=== PATIENT | female | born 1945 | race Caucasian/White ===

== ENCOUNTER 2018-08-08 09:03 | Outpatient (CLI) | payer MEDICARE, BC, SELFPAY ==
[2018-08-08 09:29] LABS: HCT 43.6 % (36.0-46.0); HGB 14.5 g/dL (12.0-15.5)
== END 2018-08-08 09:23 ==
PROVIDERS: PCP Physician Assistant Medical; Visit Provider Obstetrics & Gynecology
DX: N81.89 Other female genital prolapse (principal); Z01.818 Encounter for other preprocedural examination
CPT/HCPCS: 36415; 86850; 86900; 86901; 85014; 85018

== ENCOUNTER 2018-08-14 07:11 | Inpatient (IN) | payer MEDICARE, BC, SELFPAY ==
[2018-08-14] VITALS (10 sets, daily range): BP systolic 106–179; BP diastolic 43–79; PULSE 57–69; RESP 13–18; TEMP 36.1–36.6; O2SAT 95–99
[2018-08-14] MEDS: Lactated Ringers 1,000 ML 125 ML IV ×2 (08:03→12:09)
--- NOTE | 2018-08-14 09:56 | UTER_PTH ---
PATIENT: Erica Silveira LOC: OBS U#:[id number] AGE/SX: 73/F ROOM: OBS.301 RE08/14/[address]: Jess Villegas MD : 1945 BED: A DIS: 08/15/2018 SPEC #: [id number] RECD: 08/14/18 17:56 STATUS: CORINNE REQ #: [id number] JOSÉ MIGUEL: 08/14/18 09:[address]: Jess Villegas DEPT: Surgical Specimen RECD BY: Maite Vaughn ENTERED: 08/14/18 17:57 SP TYPE: UTER OTHR DR: Namrata Thomas Tissues: 1 - UTERUS W OR W/O OVARIES(NOT TUMOR/PROLAPSE) Procedures: GROSS AND MICRO LEVEL 5 Comments: [id number]
--- NOTE | 2018-08-14 13:46 | NUR.NOTE ---
admitted to room 301 via stretcher from PACU. Alert oriented. IV of LR at 125 hour infusing via R periph line. SCD'sin place bilat. Linda to BSD patent.Report recived from Roxie NOE.Nursing Note:
--- NOTE | 2018-08-14 17:25 | W.PM.PROGNOT ---
Date of Service Date of service: 08/14/18 Time of Service: 17:26 Assessment and Plan (1) History of vaginal hysterectomy: Current visit: Yes Status: Acute Satisfactory postop day 0 recovery. Plan Mckeon catheter removal in the morning possible discharge home. Will provide Toradol for pain relief this evening. Subjective Patient reports: tolerating a regular diet Interval history since last seen: Postop day 0 as/P vaginal hysterectomy with posterior colporrhaphy unilateral inguinal ligament suspension and bladder cystoscopy. Reports no pain no nausea. Feels that she is doing well after the surgery. Is looking forward to going home tomorrow. Exam Const General: comfortable and no acute distress Orientation: alert, awake and oriented x3 Resp Effort & Inspection: normal respiratory effort Auscultation: clear to auscultation bilaterally Cardio Palpation: normal PMI Rate: regular rate Rhythm: regular rhythm Heart Sounds: S1 normal and S2 normal GI Inspection: normal to inspection Palpation: soft Other: Nontender no guarding rebound or masses General: deferred (Vaginal pack in place it will be removed tomorrow morning) Other: Clear justin urine in the Mckeon catheter. Skin General skin exam: no rashes or lesions noted Lesions: no lesions Rashes: no rashes Trauma: no lacerations or abrasions Extrem General: normal to inspection, full ROM and normal capillary refill (Sequential compression devices in place and functioning) Objective Objective Clinical Data: Vital Signs Temperature 97.5 F L 08/14/18 13:42 Temperature Source Oral 08/14/18 13:42 Pulse 57 L 08/14/18 13:42 Pulse Rhythm Regular 08/14/18 07:45 Respiratory Rate 14 08/14/18 13:42 Respiratory Effort 08/14/18 07:45 Respiratory Depth Normal 08/14/18 07:45 Respiratory Pattern Normal 08/14/18 07:45 Blood Pressure 106/50 L 08/14/18 13:42 Pulse Oximetry 95 08/14/18 13:42 Respiratory End-tidal CO2 28 08/14/18 13:05 Oxygen Delivery Method Room Air 08/14/18 13:42 Oxygen Flow Rate 0 08/14/18 13:42 Pain Level 0 08/14/18 13:05 Intake & Output 08/13/18 08/14/18 08/14/18 23:59 11:59 23:59 Intake Total 1160 / 1160 Balance 1160 / 1160 Weight 170 lb 10.205 oz Intake: IV 1100 / 1100 Oral 60 / 60 Other: Urine Color Yellow Urine Appearance Clear Emesis Description None
[2018-08-15 01:50] VITALS: BP 138/56; PULSE 59; RESP 20; TEMP 36.6; O2SAT 95
[2018-08-15 02:16] VITALS: O2SAT 95
[2018-08-15] MEDS: Lactated Ringers 1,000 ML 125 ML IV (02:47)
[2018-08-15 08:12] VITALS: BP 154/61; PULSE 67; RESP 16; O2SAT 98
--- NOTE | 2018-08-15 08:37 | W.PM.DS.N ---
Date of service: 08/15/18 Time of Service: 08:37 DS: Diagnosis Discharge Diagnosis (1) History of vaginal hysterectomy: Status: Acute (2) Pelvic organ prolapse quantification stage 4 cystocele: Status: Acute Discharge Plan Disposition Patient Disposition: HOME Condition: Good Discharge Details Admit Date/Time: 08/14/18 07:11 Admit Provider: eJss Villegas Attending Provider: Jess Villegas Primary Care Provider: Namrata Thomas Hospital Course Hospital Course: Admitted the morning of surgery underwent the above-stated procedure minimal blood loss satisfactory repair of rectocele negative bladder cystoscopy. She required no pain medications during her hospital course was able to void spontaneously the morning of surgery and tolerate a regular diet. Home Meds and New Rx's Prescriptions: No Action metoprolol tartrate 25 mg tablet 25 mg PO BID RF: 0 Discharge Instructions Stand Alone Forms: DSU Post Gynecology Surgery Activity:: Activity as Tolerated Equipment/Supplies:: No Equipment Needed Diet:: As Tolerated Discharge Orders Discharge Orders: Discharge Order (Routine); Ordered 08/15/18 Ordered By: Flores Fontana DS: Summary Time spent discussing smoking cessation with patient: 3 to 10 minutes Exam Const General: cooperative and no acute distress Resp Effort & Inspection: normal respiratory effort Auscultation: clear to auscultation bilaterally Cardio Palpation: normal PMI Rate: regular rate Rhythm: regular rhythm Heart Sounds: S1 normal and S2 normal General: deferred and other (Vaginal packing fell out during the night-small amount of serosanguineous d) Skin General skin exam: no rashes or lesions noted Extrem General: normal to inspection, full ROM and normal capillary refill Psych Appearance: grossly normal Mental Status: mental status grossly normal Speech and Movement: speech and movement normal Mood: congruent mood Affect: normal affect Attitude: cooperative Thought Process: normal Thought Content: normal DS: Data Vitals/I&O Vitals and I&O: Vital Signs Temperature 97.9 F 08/15/18 01:50 Temperature Source Oral 08/15/18 08:12 Pulse 67 08/15/18 08:12 Pulse Rhythm Regular 08/15/18 08:12 Respiratory Rate 16 08/15/18 08:12 Respiratory Effort Non-Labored 08/15/18 08:12 Respiratory Depth Normal 08/15/18 08:12 Respiratory Pattern Normal 08/15/18 08:12 Blood Pressure 154/61 H 08/15/18 08:12 Pulse Oximetry 98 08/15/18 08:12 Respiratory End-tidal CO2 28 08/14/18 13:05 Oxygen Delivery Method Room Air 08/15/18 08:12 Oxygen Flow Rate 0 08/15/18 08:12 Pain Level 0 08/15/18 01:50 Intake & Output 08/14/18 08/14/18 08/15/18 11:59 23:59 11:59 Intake Total 1864 / 1864 863 / 863 Output Total 900 / 900 1550 / 1550 Balance 964 / 964 -687 / -687 Weight 170 lb 10.205 oz Intake: IV 1804 / 1804 863 / 863 Oral 60 / 60 Output: Urine 900 / 900 1550 / 1550 Other: Urine Color Yellow Davies Urine Appearance Clear Sediment Clear Urine Odor None Comment catheter removed by Lisa Hyde RN without issue. Pt understands need to void within 6 hours of removal. Stool Size Smear Stool Characteristics Soft Emesis Description None Voiding Methods Indwelling Catheter PFSH Medical History Pelvic organ prolapse quantification stage 4 cystocele (Acute) Surgical History History of vaginal hysterectomy (Acute) Hip joint replacement status (Acute) Social History household members: spouse housing: house lives independently: Yes number of children: 4 Smoking/Tobacco Use Status: Former Tobacco Use History History 4 Para 4 Hx # Term Pregnancies 4 Multiple births Hx # Pregnancies Ectopic pregnancies AB induced Hx Number of Living Children AB spontaneous
--- NOTE | 2018-08-30 14:45 | ROE_ITS ---
DATE OF PROCEDURE: August 15, 2018 PREOPERATIVE DIAGNOSIS: 4th degree uterine prolapse, 4th degree cystocele and 2nd degree rectocele r epair. PROCEDURE: Vaginal hysterectomy, anterior colporrhaphy, cystoscopy. SURGEON: Jess Villegas M.D. PRACTICE ARCHITECT: Flores Fontana M.D. ANESTHESIA: General. COMPLICATIONS: None. ESTIMATED BLOOD LOSS: Less than 300 cc's FLUIDS: Per Anesthesia records. FINDINGS: Small uterus with 4th degree prolapse, 4th degree cystocele. After surgery was completed there was good support. PROCEDURE: The patient was taken to the Operating Room where she was properly identified. She was t hen given general anesthesia without difficulty. She was placed in the dorsal lithotomy position and prepped and draped in normal sterile fashion. A formal time-out was then performed, confirming taiwo ent and procedure. A Mckeon catheter was placed. A Stone retractor was placed anteriorly and a poste rior weighted speculum was placed. The cervix was identified, grasped on the anterior and posterior lip with a single-toothed tenaculum and brought to the full descent. Using the Bovie cautery, the ce rvix was circumferentially incised. Then using the curved Daniel scissors, the cervix was dissected aw ay from the vagina. Attention was then turned posteriorly and the posterior cul-de-sac was entered without difficulty. A long-weighted speculum was then placed posteriorly. The posterior cuff was tagged with #0 Vicryl. The uterosacrals were taken bilaterally by clamping with curved Jaylen clamp, cutting, suture ligating with #0 Vicryl in a Jaylen fashion and tying. This was done bilaterally in a similar fashion. The u terosacral tags were held. Attention was then turned anteriorly and the vesicouterine reflection was found. The anterior cul-de -sac was entered without difficulty using the Metzenbaum scissors. A Maria C retractor was placed ant eriorly to protect the bladder from the operative field. The remainder of the broad ligament was josseline en down in a series of cross-clamping with curved Jaylen clamps bilaterally and cutting and suture lig ating with #0 Vicryl. This was performed to the level of the uterine ovarian ligament, which was the n cross-clamped x2, cut, specimen removed and sent to Pathology for permanent evaluation. Each IP pe dicle was pre-tied x1 and flashed, then suture ligated with #0 Vicryl. Hemostasis was confirmed and the tags were cut. Attention was then turned to the anterior colporrhaphy portion of the procedure. The distal end was clamped laterally with Kalina clamps. The midline was injected with 1% Lidocaine with epinephrine; i t was undermined with the Metzenbaum scissors to approximately 2 mm from the UV junction. The vagina was then opened in a linear fashion and the bladder was dissected away from the vaginal mucosa. The vesicopelvic fascia was then identified bilaterally and reapproximated with #2-0 Vicryl in an interr upted fashion. The vaginal epithelium was trimmed and closed with #0 Vicryl in a running fashion. Wicho Coronado's culdoplasty was then performed. The cuff was closed with #0 Vicryl in a running fashion. Lorena Brush's sutures was then cinched and tied. There was good support. A vaginal pack was placed and t he Mckeon was left in situ. The patient was transported to the PACU in stable condition. Sponge, lap , needle and instrument counts were correct x2.
== END 2018-08-15 09:40 | disposition home or self-care (01) | DRG 743 ==
LOC: PDS 10:41 → OBS 13:40
PROVIDERS: Admitting Provider Obstetrics & Gynecology; PCP Physician Assistant Medical; Visit Provider Obstetrics & Gynecology
PROC: 0UT97ZZ Resection of Uterus, Via Natural or Artificial Opening (ICD-10-PCS; CPT 58260; principal; 2018-08-14 08:30)
PROC: 0UT97ZZ Resection of Uterus, Via Natural or Artificial Opening (ICD-10-PCS; CPT 57260; 2018-08-14 08:30)
DX: N81.3 Complete uterovaginal prolapse (principal)
CPT/HCPCS: 57260; 58260; 99231; 99238; 88307; J0690; J1100; J1885; J2405; J3010

== ENCOUNTER 2021-05-02 02:01 | Outpatient (CLI) | payer MEDICARE, BC, SELFPAY ==
[2021-05-02 09:35] LABS: HCT 37.2 % (36.0-46.0); HGB 12.1 g/dL (11.2-15.7); MCH 29.9 pg (27.0-33.0); MCHC 32.5 % (32.0-36.0); MCV 91.9 fL (80-95); MPV 10.9 fL (8.0-11.0); Platelet Count 199 10^3/uL (130-400); RBC 4.05 10^6/uL (3.93-5.22); RDW 12.8 % (11.7-14.6); RDW-SD 43.4 fL; WBC 7.18 10^3/uL (4.4-10.8)
[2021-05-02 12:20] LABS: Source Nasal/Nares
[2021-05-02 21:45] LABS: COVID-19 PCR Negative (Negative)
== END 2021-05-02 02:02 | disposition home or self-care (01) ==
LOC: LBO 02:02
PROVIDERS: PCP Physician Assistant Medical; Visit Provider Obstetrics & Gynecology
DX: N81.10 Cystocele, unspecified (principal); Z20.822 Contact with and (suspected) exposure to COVID-19; Z01.818 Encounter for other preprocedural examination; Z01.812 Encounter for preprocedural laboratory examination
CPT/HCPCS: 36415; 85027; 86850; 86900; 86901; 87635

== ENCOUNTER 2021-05-10 02:03 | Outpatient (CLI) | payer MEDICARE, BC, SELFPAY ==
[2021-05-10 10:10] LABS: Source Nasal/Nares
[2021-05-10 11:49] LABS: COVID-19 PCR Negative (Negative)
== END 2021-05-10 02:04 | disposition home or self-care (01) ==
LOC: LBO 02:03
PROVIDERS: PCP Physician Assistant Medical; Visit Provider Obstetrics & Gynecology
DX: Z20.822 Contact with and (suspected) exposure to COVID-19 (principal); Z01.818 Encounter for other preprocedural examination
CPT/HCPCS: 87635

== ENCOUNTER 2021-05-11 06:29 | Day surgery (SDC) | payer MEDICARE, BC, SELFPAY ==
[2021-05-11] VITALS (9 sets, daily range): BP systolic 135–188; BP diastolic 51–104; PULSE 51–73; RESP 12–20; TEMP 36.5–37; O2SAT 93–99; BMI 28.3
--- NOTE | 2021-05-11 01:33 | W.ANESPRE ---
General Info Date of Service Date Performed: 05/11/21 Height: 5 ft 1.25 in Weight: 68.492 kg Body Mass Index (BMI): 28.3 Surgical Procedure: Operation Date: 05/11/21 07:40 Proposed Procedures Side Surgeon p anterior repair Minoo Bledsoe MD Meds Allergies and Home Medications Allergies Allergy/AdvReac Type Severity Reaction Status Date / Time No Known Allergies Allergy Verified 05/11/21 06:38 Home Medication Medication Instructions Recorded atorvastatin 10 mg tablet 10 mg PO DAILY 03/29/21 aspirin 81 mg tablet 81 mg PO DAILY 04/26/21 clopidogrel 75 mg tablet 75 mg PO DAILY 04/26/21 diltiazem HCl 120 mg 120 mg PO .qd PRN cap 04/26/21 capsule,extended release 12 hr Current Visit Medications: Current Medications Generic Name Dose Route Start Last Admin Trade Name Freq PRN Reason Stop Dose Admin Ringer's Solution 1,000 mls @ 125 mls/hr 05/11/21 06:00 IV 06/07/21 23:59 INFUSION VESNA IV Miscellaneous Supplies 1 each 05/11/21 06:00 Iv Access IV 06/07/21 23:59 DIRECTED VESNA Sodium Chloride 0 ml 05/11/21 06:00 Normal Saline Flush 10 Ml Syr IV 06/07/21 23:59 PRN PRN Sodium Chloride 0 ml 05/11/21 06:00 Normal Saline 10 Ml Vial IJ 06/07/21 23:59 DIRECTED PRN Sterile Water 0 ml 05/11/21 06:00 Water,Injection,Sterile 10 Ml Vial IJ 06/07/21 23:59 DIRECTED PRN PFSH Active Problems Active Problems: Problem Status Onset Code Globus sensation R09.89 Right thyroid nodule E04.1 Cystocele with prolapse N81.4 History of vaginal hysterectomy Z90.710 Pelvic organ prolapse quantification stage 4 cystocele N81.10 Medical History Medical History (Updated 05/11/21 @ 06:38 by Gregoria Alexandra) CVA (cerebral vascular accident) December 2018 Hx of supraventricular tachycardia Hyperlipidemia Pelvic organ prolapse quantification stage 4 cystocele Surgical History Surgical History H/O of anterior colporrhaphy 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 postop recovery without complications Tobacco Smoking/Tobacco Use Status: Former Tobacco Use Alcohol Alcohol Intake: never Substance Use Substance use: Never Substance use type: does not use Prental History History 4 Para 4 Hx # Term Pregnancies 4 Multiple births Hx # Pregnancies Ectopic pregnancies AB induced Hx Number of Living Children AB spontaneous Vital Signs and Lab Results Vital Signs Most Recent Vital Signs in EMR: Temp Pulse Resp BP Pulse Ox 36.8 C 73 20 157/104 H 99 05/11/21 06:35 05/11/21 06:35 05/11/21 06:35 05/11/21 06:35 05/11/21 06:35 Lab Results Blood Type / Crossmatch: Patient ABO/Rh AB Positive 05/02/21 09:18 05/02/21 Antibody Screen NEGATIVE 05/02/21 09:18 05/02/21 Complete Blood Count: White Blood Count 7.18 10^3/uL (4.4-10.8) 05/02/21 09:18 05/02/21 Red Blood Count 4.05 10^6/uL (3.93-5.22) 05/02/21 09:18 05/02/21 Hemoglobin 12.1 g/dL (11.2-15.7) 05/02/21 09:18 05/02/21 Hematocrit 37.2 % (36.0-46.0) 05/02/21 09:18 05/02/21 Platelet Count 199 10^3/uL (130-400) 05/02/21 09:18 05/02/21 Complete Metabolic Panel: No Data to Display Liver Function Panel: No Data to Display Coagulation Panel: No Data to Display Cardiac Panel: No Data to Display Arterial Blood Gas: No Data to Display Venous Blood Gas: No Data to Display Pancreas Panel: No Data to Display Thyroid Panel: No Data to Display Infectious Disease: Coronavirus (COVID-19)(PCR) Negative (Negative) 05/10/21 08:02 05/10/21 Coronavirus 2019 Source Nasal/Nares 05/10/21 08:02 05/10/21 Blood Cultures: No Data to Display Toxicology Panel: No Data to Display Imaging and Studies Imaging and Studies Echocardiogram Summary: LVEF 65%, RV Fxn wnl, LA severely dilated, possible ASD, no hemodynamically significant valve disease. Anesthesia Assessment and Plan Anesthesia History Personal History: No History of Anesthesia Complications Family History: No Family History of Anesthesia Complications Exercise Tolerance Exercise Tolerance: Metabolic Equivalents>4 Cardiac & Pulmonary Exam Cardiac Exam: Normal S1/S2 Heart Sounds Pulmonary Exam: Clear Bilateral Breath Sounds Airway Exam Known Difficult Airway: No Mallampati Class: 2 Mouth Opening: Normal (> 3cm) Thyromental Distance: Greater than 3 cm Neck Range of Motion: Limited ROM Neck Circumference: Normal Teeth Condition: Normal Dentition and Removable Dentures/Plates Upper ASA Classification ASA Score: ASA 3 Emergency Case?: No NPO Status NPO Status: NPO Clears >2 hours, Solids >8 hours Anesthesia Plan Resuscitation Status: Full Code Anesthesia Technique: General Anesthesia Airway Planned: LMA Monitors Used: Standard Monitors Preoperative Comments:: 75 yo female for anterior repair. Sig PMHx: HTN, ischemic stroke (clopidogrel/aspirin), former smoker.
[2021-05-11] MEDS: Lactated Ringers 1,000 ML 125 ML IV (07:05)
--- NOTE | 2021-05-11 08:55 | ROE_ITS ---
Date of service: 05/11/21 Time of Service: 08:55 Operative Note Operative Note DATE OF PROCEDURE: 05/11/21 PRE-OP DIAGNOSIS: Cystocele grade 4 POST-OP DIAGNOSIS: same PROCEDURE: Vaginal anterior repair SURGEON: Minoo Bledsoe ASSISTING SURGEON: Flores Fontana ANESTHESIA TYPE: Local By Surgeon and General LMA/ETT Refer to Anesthesia Record ESTIMATED BLOOD LOSS: 100 PATHOLOGY: none sent COMPLICATIONS: None Patient was transported to: PACU Patient's condition: stable Implants: None Indications: Grade 4 cytocele Findings: Grade 4 cystocele. Good apical support. No significant rectocele - scar from prior repair palpable. Procedure Description: After informed consent was signed the patient was taken to the operating room and given general anesthesia. SCDs were placed on her legs. She was prepped and draped in the dorsal lithotomy position in the [facility]. A lara catheter was introduced into her bladder. A time out was performed. Exam under anesthesia reveal the grade 4 cystocele. No rectocele. Slight vaginal apex descent. The anterior vaginal mucosa was injected in the midline with 1/2percent marcaine with epinephrine. The scalpel was used to incise the midline. The mucosal edges were grasped with allis clamps and the incision was extended with the Metzambaum scissors to the vaginal apex. The bladder was then dissected off from the vaginal mucosa with a combination of blunt and sharp dissection with the Metzembaum scissors. When it was adequately dissected, the edges of the fascia were identified posteriorly and brought together with interrupted sutures of 0-vicryl until the cystocele was reduced. The vaginal mucosa was then closed in a running locked fashion with 0-vicryl. There was good hemostasis. A saline-soaked vaginal packing was placed. The patient was placed back into the supine position. She was awakened from anesthesia, moved to the stretcher and taken to the recovery room in stable condition.
--- NOTE | 2021-05-11 09:51 | W.ANESPOSTOP ---
Postoperative Evaluation Date, Time and Location Date Performed: 05/11/21 Time Performed: 09:30 Patient Location: PACU Vital Signs Most Recent Imported Vital Signs: Most Recent Vital Signs Temp Pulse Resp BP Pulse Ox 36.5 C 51 L 18 172/57 H 96 05/11/21 09:44 05/11/21 09:44 05/11/21 09:44 05/11/21 09:44 05/11/21 09:44 Pain Score Most Recent Pain Score: Most Recent Pain Score Pain Level 0 05/11/21 09:44 Assessment Mental Status: Awake (Alert & Oriented to Patient Baseline) Airway and Respiratory Function: Patent airway with normal (patient baseline) respiratory exam Cardiovascular Function: Hemodynamically Stable Hydration Status: Adequately Hydrated Nausea & Vomiting: No Nausea or Vomiting Pain: Pain is tolerable per patient Peripheral Nerve Block: Patient did not receive a nerve block
--- NOTE | 2021-05-12 12:29 | W.PM.DSUDISC ---
Discharge Plan Disposition Patient Disposition: HOME Condition: Good Discharge Details Reason For Visit: cystocele Attending Provider: Minoo Bledsoe Primary Care Provider: Namrata Thomas Home Meds and New Rx's Prescriptions: No Action clopidogrel 75 mg tablet 75 mg PO DAILY RF: 0 diltiazem HCl 120 mg capsule,extended release 12 hr 120 mg PO .qd PRNRF: 0 aspirin 81 mg tablet 81 mg PO DAILY RF: 0 atorvastatin 10 mg tablet 10 mg PO DAILY RF: 0 Discharge Instructions Stand Alone Forms: Anesthesia Discharge Inst., DSU Post Gynecology Surgery Activity:: No lifting >20lbs Shower/Bathe:: 24 hours Diet:: As Tolerated Discharge Orders Discharge Orders: Discharge Order (Routine); Ordered 05/12/21 Ordered By: Minoo Bledsoe Discharge Data Discharge Date/Time-TO BE ENTERED AT DEPARTURE: 05/11/21 11:00 DS: Diagnosis Discharge Diagnosis (1) Cystocele with prolapse: Status: Acute Asessment and Plan: Pt underwent Anterior repair (of cystocele) as scheduled and without complication.
--- NOTE | 2021-05-16 12:49 | W.PM.DSUDISC ---
Discharge Plan Disposition Patient Disposition: HOME Condition: Good Discharge Details Reason For Visit: cystocele Attending Provider: Minoo Bledsoe Primary Care Provider: Namrata Thomas Home Meds and New Rx's Prescriptions: No Action clopidogrel 75 mg tablet 75 mg PO DAILY RF: 0 diltiazem HCl 120 mg capsule,extended release 12 hr 120 mg PO .qd PRNRF: 0 aspirin 81 mg tablet 81 mg PO DAILY RF: 0 atorvastatin 10 mg tablet 10 mg PO DAILY RF: 0 Discharge Instructions Stand Alone Forms: Anesthesia Discharge Inst., DSU Post Gynecology Surgery Activity:: No lifting >20lbs Shower/Bathe:: 24 hours Diet:: As Tolerated Discharge Orders Discharge Orders: Discharge Order (Routine); Ordered 05/12/21 Ordered By: Minoo Bledsoe Discharge Data Discharge Date/Time-TO BE ENTERED AT DEPARTURE: 05/11/21 11:00 DS: Diagnosis Discharge Diagnosis (1) Cystocele with prolapse: Status: Acute
== END 2021-05-11 11:00 | disposition home or self-care (01) ==
PROVIDERS: PCP Physician Assistant Medical; Visit Provider Obstetrics & Gynecology
PROC: (CPT 57260; principal; 2021-05-11 07:30)
DX: N81.10 Cystocele, unspecified (principal); E78.5 Hyperlipidemia, unspecified; Z86.73 Personal history of transient ischemic attack (TIA), and cerebral infarction without residual deficits
CPT/HCPCS: 57240; 86850; 86900; 86901; J1100; J2001; J2405